=== PATIENT | male | born 1960 | race Caucasian/White ===

== ENCOUNTER → 2025-02-19 | Outpatient (CLI) | payer MEDICARE ==
--- NOTE | 2025-02-19 16:55 | HMCIMG ---
MR SPINAL CANAL, LUMBAR WO CON HISTORY: Spinal stenosis COMPARISON: None TECHNIQUE: MRI of the lumbar spine was performed utilizing multiple pulse sequences in axial , coronal and sagittal plane. Patient was not given contrast through intravenous route. FINDINGS: Endplate degenerative changes with disc space narrowing is seen predominantly involving the L4-5 level. No loss of vertebral height is seen. There is straightening of normal lumbar curvature which may be related to muscle spasm or positioning. Degenerative disc signals are present at all lumbar spine levels. Visualized distal conus is unremarkable. There is levoscoliosis. At the L1-2 level, there is spondylotic disc with annular disc bulge and bilateral ligamentum flavum hypertrophy causing anterior thecal sac compression with bilateral lateral recess stenosis and bilateral neural foraminal stenosis. The thecal sac measures approximately 9.1 mm in its anterior posterior dimension. At the L2-3 level, there is spondylotic disc with annular disc bulge and bilateral ligamentum flavum hypertrophy causing anterior thecal sac compression with bilateral lateral recess stenosis and bilateral neural foraminal stenosis. The thecal sac measures approximately 7.9 mm in its anterior posterior dimension. At the L3-4 level, there is spondylotic disc with annular disc bulge asymmetric to the right with disc herniation and bilateral ligamentum flavum hypertrophy causing anterior thecal sac compression with bilateral lateral recess stenosis and bilateral neural foraminal stenosis. The thecal sac measures approximately 6.8 mm in its anterior posterior dimension. At the L4-5 , there is spondylotic disc with central and right lateral protrusion/herniation level causing anterior thecal sac compression with bilateral lateral recess stenosis and bilateral neural foraminal stenosis. The thecal sac measures approximately 6.4 mm in its anterior posterior dimension. At the L5-S1 level, there is spondylotic disc with mild ligamentum flavum hypertrophy causing anterior thecal sac compression with bilateral lateral recess stenosis and mild bilateral neural foraminal stenosis. The thecal sac measures approximately 10.5 mm in its anterior posterior dimension. IMPRESSION: 1. DJD lumbar spine spondylosis and central canal narrowings at this level. Bilateral disc protrusion/herniation is seen at L3-4 and L4-5 levels.
== END | disposition home or self-care (01) ==
LOC: RAH 13:44
PROVIDERS: ATTEND Physical Medicine & Rehabilitation
DX: M47.816 Spondylosis without myelopathy or radiculopathy, lumbar region (principal); M51.369 Other intervertebral disc degeneration, lumbar region without mention of lumbar back pain or lower extremity pain; M48.061 Spinal stenosis, lumbar region without neurogenic claudication
CPT/HCPCS: 72148